=== PATIENT | female | born 1955 | race Caucasian/White ===

== ENCOUNTER 2017-05-23 19:30 | Emergency (ER) | payer OTHER ==
[~2017-05-23] VITALS: Ht 154.9 cm; Wt 86.2 kg
[2017-05-23 19:30] VITALS: BP_SYST 164
--- NOTE | 2017-05-23 19:30 | NUR ---
Patient to ER bed 3 to gown for evaluation. Side rails up. Report given to SILVIA DIMAS.
--- NOTE | 2017-05-23 19:45 | NUR ---
Patient AOx4, BIBA, patient complaint of left chest pain 8/10 radiating to left breast. Patient on 3L O2 sat 94%. No acute distress noted at this time.
--- NOTE | 2017-05-23 20:00 | NUR ---
ER MD Harris at bedside examining patient.
[2017-05-23] MEDS ORDERED: NACL 0.9% 1,000 ML IV ONE (20:06)
[2017-05-23] MEDS ORDERED: ASPIRIN 81 MG TAB.CHEW PO ONE (20:15)
--- NOTE | 2017-05-23 20:15 | NUR ---
# 20 gauge angiocath placed to LAC. Use of asceptic technique. Opsite placed over site. Blood return noted. Blood for lab drawn from site. Flushed with 10 cc of normal saline. No evidence of infiltration noted. Patient tolerated well.
[2017-05-23] MEDS ORDERED: MORPHINE 2 MG/ML INJ. SYRINGE IVP ONE ×2 (20:30→23:30)
--- NOTE | 2017-05-23 20:52 | NUR ---
No adverse reactions noted after medication administration. Will continue to monitor.
[2017-05-23 21:11] LABS: BASOPHILS % (AUTO) 0.3 % (0.0-2.0); EOSINOPHILS # (AUTO) 0.2 K/uL (0.0-0.4); EOSINOPHILS % (AUTO) 1.6 % (0.0-4.0); HEMATOCRIT 36.6 % (36-48); HEMOGLOBIN 12.1 g/dL (12.0-16.0); LYMPHOCYTES # (AUTO) 1.3 K/uL (1.0-5.5); LYMPHOCYTES % (AUTO) 8.5 % (20.5-51.5); MEAN CORPUSCULAR HEMOGLOBIN 30 pg (27-31); MEAN CORPUSCULAR HGB CONC 33 % (32-36); MEAN CORPUSCULAR VOLUME 91 fL (79.0-98.0); MONOCYTES # (AUTO) 0.8 K/uL (0.0-1.0); MONOCYTES % (AUTO) 5.1 % (1.7-9.3); NEUTROPHILS # (AUTO) 13.2 K/uL (1.8-7.7); NEUTROPHILS % (AUTO) 84.5 % (40.0-70.0); PLATELET COUNT (AUTO) 326 K/uL (130-430); RED BLOOD CELL COUNT(AUTO) 4.02 MIL/uL (4.2-6.2); RED CELL DISTRIBUTION WIDTH 15.9 % (9.0-15.0); WHITE BLOOD COUNT (AUTO) 15.5 K/uL (4.8-10.8)
[2017-05-23 21:19] LABS: ANION GAP 8 (5-15); CALCIUM 8.8 mg/dL (8.4-11.0); CHLORIDE 101 mmol/L (98-107); CREATININE 0.96 mg/dL (0.55-1.30); GLUCOSE 133 mg/dL (70-99); POTASSIUM 4.1 mmol/L (3.5-5.1); SODIUM SERUM 140 mmol/L (136-145); UREA NITROGEN, BLOOD 14 mg/dL (8-21)
[2017-05-23 21:20] LABS: GFR AFRICAN AMERICAN 76 mL/min (>90)
--- NOTE | 2017-05-23 21:25 | NUR ---
No adverse reactions noted after medication administration. Will continue to monitor.
[2017-05-23 21:28] LABS: INR 0.9 (0.8-1.2)
[2017-05-23 21:31] LABS: ALANINE AMINOTRANSFERASE 35 U/L (12-78); ALBUMIN 3.4 g/dL (3.4-4.8); ASPARTATE AMINOTRANSFERASE 18 U/L (10-37); TOTAL BILIRUBIN 0.4 mg/dL (0.0-1.0)
[2017-05-23] MEDS ORDERED: NITROGLYCERIN 1 INCH (GM) OINT. TD ONE (22:00)
--- NOTE | 2017-05-23 22:00 | NUR ---
at bedside. Patient resting, no acute distress noted.
--- NOTE | 2017-05-24 00:05 | NUR ---
Consent obtained from patient for CT scan.
--- NOTE | 2017-05-24 00:18 | NUR ---
Spoke to RN Ernst Melendez, Patient will be transported. ETA for pickup is 45 min.
--- NOTE | 2017-05-24 00:30 | NUR ---
No adverse reactions noted after medication administration. Will continue to monitor.
[2017-05-24 00:45] VITALS: BP_SYST 146
--- NOTE | 2017-05-24 00:45 | NUR ---
Patient to be transferred to [facility]. Is being transferred due to higher level of care. Receiving facility has accepting physician and available space. ER physician has signed transfer form. Patient or responsible democrat has agreed to transfer and signed form. Patient belongings inventoried and will be sent with patient. Copy of nursing notes, lab reports, EKG, Physicians Orders and X-rays to be sent with patient. Report called to Francoise at receiving facility. Receiving physician is Dr. Rivera. [facility] has been called for transfer. ETA is 20 minutes.
== END 2017-05-24 00:45 | disposition short-term general hospital (02) ==
LOC: SED 19:30
DX: R07.89 Other chest pain (principal); J44.9 Chronic obstructive pulmonary disease, unspecified; I10 Essential (primary) hypertension; Z85.118 Personal history of other malignant neoplasm of bronchus and lung; Z90.49 Acquired absence of other specified parts of digestive tract; Z88.1 Allergy status to other antibiotic agents
CPT/HCPCS: 36415; 71010; 80053; 84484; 85025; 85610; 85730; 93005; 96361; 96374; 96376; 99285; J2270 ×2; J7030